=== PATIENT | male | born 1960 | race Caucasian/White ===

== ENCOUNTER → 2023-05-28 08:55 | Outpatient (REF) | payer OTHER, SELFPAY ==
[2023-05-28 10:49] LABS: % Basophils 0.8 % (0-2); % Eosinophils 7.2 % (0-6); % Immature Granulocytes 0.6 % (0-0.5); % Lymphocytes 30.5 % (20.5-51.1); % Monocytes 9.7 % (1.7-9.3); % Neutrophils 51.2 % (42.2-75.2); Absolute Eosinophils 0.4 10^3/uL (0-0.7); Absolute Lymphocytes 1.5 10^3/uL (1.2-3.4); Absolute Monocytes 0.5 10^3/uL (0.1-0.6); Absolute Neutrophils 2.5 10^3/uL (1.4-6.5); Hematocrit 41.9 % (39.0-52.0); Hemoglobin 14.6 g/dL (13.0-18.0); Mean Corp Hgb Conc. 34.8 g/dL (33.0-37.0); Mean Corpuscular Hgb 29.7 pg (27.0-31.0); Mean Corpuscular Volume 85.3 fL (80.0-94.0); Mean Platelet Volume 12.7 fL (7.4-10.4); Nucleated Red Blood Cells % 0 % (-); Platelet Count 152 10^3/uL (130-400); Red Blood Cell Count 4.91 10^6/uL (4.70-6.10); Red Cell Dist. Width 12.7 % (11.5-14.5); White Blood Cell Count 4.9 10^3/uL (4.8-10.8)
[2023-05-28 10:52] LABS: ALT (SGPT) 30 U/L (0-50); AST (SGOT) 34 U/L (17-59); Albumin 4.2 g/dl (3.5-5.0); Alkaline Phosphatase 74 U/L (38-126); Blood Urea Nitrogen 23 mg/dl (9-20); Calcium 9.3 mg/dl (8.4-10.2); Carbon Dioxide 22 mmol/L (22-30); Chloride 104 mmol/L (98-107); Direct Bilirubin 0.2 mg/dl (0.0-0.4); GGTP 47 U/L (15-73); Glucose 88 mg/dl (70-99); LDH 175 U/L (120-246); Magnesium 1.8 mg/dl (1.6-2.3); Potassium 4.5 mmol/L (3.5-5.1); Sodium 133 mmol/L (135-145); Total Bilirubin 1.8 mg/dl (0.2-1.3); Total Protein 6.9 g/dl (6.3-8.2); eGFR > 60.00
[2023-05-29 21:52] LABS: Tacrolimus (Prograft - FK506) 4.5 ng/mL
== END ==
LOC: REG 08:55
PROVIDERS: ATTENDING PHYSICIAN Internal Medicine Gastroenterology; FAMILY PHYSICIAN Family Medicine
DX: Z94.4 Liver transplant status (principal); Z92.25 Personal history of immunosuppression therapy; Z79.899 Other long term (current) drug therapy; Z00.00 Encounter for general adult medical examination without abnormal findings; Z51.81 Encounter for therapeutic drug level monitoring
CPT/HCPCS: 36415; 80053; 80197; 82248; 82977; 83615; 83735; 85025

== ENCOUNTER → 2023-11-13 09:16 | Outpatient (REF) | payer OTHER, SELFPAY ==
[2023-11-13 11:29] LABS: % Basophils 0.7 % (0-2); % Eosinophils 7.1 % (0-6); % Immature Granulocytes 0.8 % (0-0.5); % Lymphocytes 31.2 % (20.5-51.1); % Monocytes 8.6 % (1.7-9.3); % Neutrophils 51.6 % (42.2-75.2); Absolute Eosinophils 0.4 10^3/uL (0-0.7); Absolute Immature Granulocytes 0.1 10^3/uL (0-0.05); Absolute Lymphocytes 1.8 10^3/uL (1.2-3.4); Absolute Monocytes 0.5 10^3/uL (0.1-0.6); Hematocrit 41.2 % (39.0-52.0); Hemoglobin 14.7 g/dL (13.0-18.0); Mean Corp Hgb Conc. 35.7 g/dL (33.0-37.0); Mean Corpuscular Hgb 29.7 pg (27.0-31.0); Mean Corpuscular Volume 83.2 fL (80.0-94.0); Mean Platelet Volume 12.1 fL (7.4-10.4); Nucleated Red Blood Cells % 0 % (-); Platelet Count 160 10^3/uL (130-400); Red Blood Cell Count 4.95 10^6/uL (4.70-6.10); Red Cell Dist. Width 12.8 % (11.5-14.5); White Blood Cell Count 5.9 10^3/uL (4.8-10.8)
[2023-11-13 12:05] LABS: ALT (SGPT) 25 U/L (0-50); AST (SGOT) 28 U/L (17-59); Albumin 4.4 g/dl (3.5-5.0); Alkaline Phosphatase 77 U/L (38-126); Blood Urea Nitrogen 18 mg/dl (9-20); Calcium 9.4 mg/dl (8.4-10.2); Carbon Dioxide 23 mmol/L (22-30); Chloride 101 mmol/L (98-107); Direct Bilirubin 0.2 mg/dl (0.0-0.4); GGTP 44 U/L (15-73); Glucose 91 mg/dl (70-99); HDL Cholesterol 65 mg/dl; LDH 184 U/L (120-246); LDL Cholesterol, Calculated 131 mg/dl; Magnesium 1.6 mg/dl (1.6-2.3); Potassium 4.4 mmol/L (3.5-5.1); Sodium 137 mmol/L (135-145); Total Bilirubin 2.1 mg/dl (0.2-1.3); Total Cholesterol 226 mg/dl (50-199); Total Protein 6.8 g/dl (6.3-8.2); Triglyceride 151 mg/dl (10-149); Very Low Density Lipoprotein 30 mg/dl (0-30); eGFR > 60.00
[2023-11-13 18:27] LABS: PSA, Total - Screen 1.74 ng/ml (0.0-4.0); TSH 1.49 uIU/ml (0.47-4.68)
[2023-11-15 16:51] LABS: Tacrolimus (Prograft - FK506) 6.4 ng/mL
== END ==
LOC: REG 09:16
PROVIDERS: ATTENDING PHYSICIAN Internal Medicine Gastroenterology; FAMILY PHYSICIAN Family Medicine
DX: Z94.4 Liver transplant status (principal); Z00.00 Encounter for general adult medical examination without abnormal findings; Z51.81 Encounter for therapeutic drug level monitoring; Z92.25 Personal history of immunosuppression therapy; E03.9 Hypothyroidism, unspecified; R53.83 Other fatigue; E78.5 Hyperlipidemia, unspecified; R35.0 Frequency of micturition; I10 Essential (primary) hypertension; Z12.5 Encounter for screening for malignant neoplasm of prostate
CPT/HCPCS: 36415; 80053; 80061; 80197; 82248; 82977; 83615; 83735; 84443; 85025; G0103

== ENCOUNTER → 2024-06-27 09:49 | Outpatient (REF) | payer OTHER, SELFPAY ==
[2024-06-27 10:29] LABS: % Basophils 0.8 % (0-2); % Eosinophils 4.6 % (0-6); % Immature Granulocytes 0.7 % (0-0.5); % Lymphocytes 29.5 % (20.5-51.1); % Monocytes 8.5 % (1.7-9.3); % Neutrophils 55.9 % (42.2-75.2); Absolute Basophils 0.1 10^3/uL (0-0.2); Absolute Eosinophils 0.3 10^3/uL (0-0.7); Absolute Lymphocytes 1.7 10^3/uL (1.2-3.4); Absolute Monocytes 0.5 10^3/uL (0.1-0.6); Absolute Neutrophils 3.3 10^3/uL (1.4-6.5); Hematocrit 44.2 % (39.0-52.0); Hemoglobin 15.3 g/dL (13.0-18.0); Mean Corp Hgb Conc. 34.6 g/dL (33.0-37.0); Mean Corpuscular Volume 86.7 fL (80.0-94.0); Mean Platelet Volume 11.9 fL (7.4-10.4); Nucleated Red Blood Cells % 0 % (-); Platelet Count 157 10^3/uL (130-400); Red Cell Dist. Width 12.5 % (11.5-14.5); White Blood Cell Count 5.9 10^3/uL (4.8-10.8)
[2024-06-27 10:59] LABS: ALT (SGPT) 20 U/L (0-50); AST (SGOT) 23 U/L (17-59); Albumin 4.1 g/dl (3.5-5.0); Alkaline Phosphatase 64 U/L (38-126); Blood Urea Nitrogen 18 mg/dl (9-20); Calcium 9.3 mg/dl (8.4-10.2); Carbon Dioxide 25 mmol/L (22-30); Chloride 106 mmol/L (98-107); Direct Bilirubin 0.2 mg/dl (0.0-0.4); Glucose 92 mg/dl (70-99); LDH 189 U/L (120-246); Magnesium 1.8 mg/dl (1.6-2.3); Potassium 4.4 mmol/L (3.5-5.1); Sodium 137 mmol/L (135-145); Total Bilirubin 2.1 mg/dl (0.2-1.3); Total Protein 6.7 g/dl (6.3-8.2); eGFR > 60.00
[2024-06-27 12:10] LABS: GGTP 37 U/L (15-73)
[2024-06-29 00:36] LABS: Tacrolimus (Prograft - FK506) 6.3 ng/mL
== END ==
LOC: REG 09:49
PROVIDERS: ATTENDING PHYSICIAN Internal Medicine Gastroenterology; FAMILY PHYSICIAN Family Medicine
DX: Z94.4 Liver transplant status (principal); Z00.00 Encounter for general adult medical examination without abnormal findings; Z51.81 Encounter for therapeutic drug level monitoring; Z48.23 Encounter for aftercare following liver transplant; D84.9 Immunodeficiency, unspecified
CPT/HCPCS: 36415; 80053; 80197; 82248; 82977; 83615; 83735; 85025

== ENCOUNTER 2024-07-08 09:19 | Emergency (ER) | payer OTHER, SELFPAY ==
[2024-07-08 09:23] VITALS: BP 182/90
[2024-07-08 10:27] VITALS: BMI 30.3
[2024-07-08 10:31] VITALS: BP 153/90
--- NOTE | 2024-07-08 11:28 | ED.GENMED ---
History of Present Illness
General
Chief Complaint: Catheter/Tube Problem
Source: patient
Exam Limitations: none
Time Seen by Provider: 07/08/24 10:08
History of Present Illness
History of Present Illness:
Patient is a 63-year-old male with past medical history of cirrhosis liver transplant presents to the ER for evaluation. He has a right upper chest wall port for blood draws and complains of discomfort to the site. He reports he was here 2 weeks
ago and after they mumtaz blood he feels that they may have shifted /flipped the port ; it has not felt normal since. He denies however redness to the site denies any fever or chills.
He spoke to his transplant physician Dr. Maksim Morrell who sent him to the ER to have his port removed. He reports he was trying to get an order from his physician so he could come here to [facility] but he was not able to get an
order to have it removed.
Past History
Past History
ED Past Medical History: Other, Other and Other
Social History
Tobacco: Former smoker
Alcohol: Daily
Personal:
Living: with family
Employment: Employed
Family History
Family History: Other
Review of Systems
Review of Systems
All Other Systems: ROS reviewed and negative except as documented in HPI and ROS
Constitutional: Reports no symptoms; Denies fever or fatigue
Respiratory: Reports no symptoms
Cardiac: Reports no symptoms
ABD/GI: Reports no symptoms
: Reports no symptoms
Musculoskeletal: Reports no symptoms
Skin: Reports other (port to right chest wall 'feels flipped' )
Neurological: Reports no symptoms
Psychiatric: Reports no symptoms
Phy Exam
General Physical Exam
General Presentation: no apparent distress
General age: appears stated age
General Skin: warm and dry
General Habitus: normal
General Mental: alert
General Hydration: appears well hydrated
Cardiovascular Exam
Cardiovascular Exam: regular rate/rhythm, no murmur and normal peripheral pulses
Pulmonary Exam
Pulmonary Exam: lungs clear, no respiratory distress and other (Right chest wall with port palpated no inflammation swelling to the area or ecchymosis no abrasions)
Neurological Exam
Neurological Exam: alert and oriented x3
Musculoskeletal Exam
Musculoskeletal Exam: full ROM
Skin Exam
Skin Exam: normal color and warm/dry
Course
Orders/Labs/Results
Orders:
Orders
07/08/24 12:02
[facility] CONSULT Urgent
Consulting Provider: Brandin Domingo
Was physician already notified: Yes
Procedure being ordered, including laterality if applicable: port removal
Acknowledgement that appropriate orders are entered: Yes
Vital Signs
Initial and Last Documented VS:
Initial Vital Signs
Temp Pulse Resp BP Pulse Ox
98.6 F 88 18 182/90 97
07/08/24 09:23 07/08/24 09:23 07/08/24 09:23 07/08/24 09:23 07/08/24 09:23
Last Documented Vital Signs
Temp Pulse Resp BP Pulse Ox
98.6 F 64 18 150/84 100
07/08/24 09:23 07/08/24 13:31 07/08/24 13:31 07/08/24 13:31 07/08/24 13:31
MDM/Problems Addressed
Differential Diagnosis Includes:
port problem
MDM/Problems Addressed:
Patient is a 63-year-old male who has a port in for blood draws and 2 weeks ago after having it used to withdraw blood he feels is either flipped or twisted. He has no other complaints. He denies any fever chills redness. On exam there is no
evidence of infection. I spoke with interventional radiology they are aware of this patient as he has been calling interventional radiology every day to try to get this catheter removed. He needed a note from his physician. I did contact his
physician Dr. Gandhi/physician group who sent an order to have this port removed.
I spoke directly with interventional radiology. they will schedule patient on Thursday to have this done as they have multiple critical patients here in the ER. There is nothing urgent to do in the ER. I did review this with patient he is
agreeable this plan of care and happy with the outcome.
*Critical Care Note
Total Time (30-74mins, 75-104mins- exclusive of procedures): Not Applicable
ED Attending Note
-
Portions of this chart may have been created with voice recognition software.� Occasional wrong word or��sound alike� substitutions may have occurred due to the inherent limitations of voice recognition software.
Discharge Plan
Departure
Patient Disposition: Home (Routine Discharge)
Date of Disposition: 07/08/24
Time of Disposition: 13:20
Patient with high blood pressure during this ER visit?: Yes
Condition: Good
Covid-19: Not Applicable
Discharge Problem:
Problem with intravenous catheter
Prescriptions:
No Action
aspirin [Baby Aspirin] 81 mg Tablet,Chewable
81 mg PO DAILY
tacrolimus [Prograf] 1 mg Capsule
1 mg PO Q12H
magnesium oxide 400 mg magnesium Capsule
400 mg PO BID
sodium,potassium,mag sulfates [Suprep Bowel Prep Kit] 17.5-3.13-1.6 gram Recon Soln
1 PER PROTOCOL
Referrals:
Drew Escobar DO [Family Provider] -
Activity Restrictions/Additional Instructions:
As discussed please call interventional radiology when you get home today to schedule an appointment for Thursday.
As reviewed there is no evidence of infection on exam .
return if any worsening of symptoms
Interventions
Interventions:
*Risk Screen - Suicide Last Done: 07/08/24 09:23
*General Assessment Last Done: 07/08/24 09:23
*Neglect/Abuse Screening Last Done: 07/08/24 09:23
*ED- Fall Risk Assessment Last Done: 07/08/24 10:27
*ED COVID-19 Vaccine History Last Done: 07/08/24 10:27
*Nursing Disposition Last Done: 07/08/24 13:31
HJ-Luyokl-Wbtitkyhgg Assessment Last Done: 07/08/24 10:27
ED-Male Genitourinary Assessment Last Done: 07/08/24 10:27
Discharge Date and Time
Discharge Date/Time: 07/08/24 13:32
Print Language: LEBANESE
--- NOTE | 2024-07-08 13:29 | EDRN ---
Reviewed discharge instructions with patient. Verbalized understanding. Ambulated with steady gait to the lobby.
[2024-07-08 13:31] VITALS: BP 150/84
== END 2024-07-08 13:32 | disposition home or self-care (01) ==
LOC: EMR 09:19
PROVIDERS: CONSULT PHYSICIAN Radiology Vascular & Interventional Radiology; EMERGENCY PHYSICIAN Emergency Medicine; FAMILY PHYSICIAN Family Medicine
DX: T82.848A Pain due to vascular prosthetic devices, implants and grafts, initial encounter (principal); Y84.8 Other medical procedures as the cause of abnormal reaction of the patient, or of later complication, without mention of misadventure at the time of the procedure; Z87.891 Personal history of nicotine dependence; Z94.4 Liver transplant status
CPT/HCPCS: 99282

== ENCOUNTER → 2024-07-12 13:19 | Outpatient (REF) | payer OTHER, SELFPAY ==
[2024-07-12 13:47] VITALS: BP 150/96; BP_SYST 76
== END ==
LOC: RADI 13:19
PROVIDERS: ATTENDING PHYSICIAN Nurse Practitioner Family; FAMILY PHYSICIAN Family Medicine
DX: Z45.2 Encounter for adjustment and management of vascular access device (principal)
CPT/HCPCS: 36590; 77001

== ENCOUNTER → 2024-08-23 10:39 | Outpatient (REF) | payer OTHER, SELFPAY | LOC: RAD 10:39 | PROVIDERS: ATTENDING PHYSICIAN Physician Assistant; FAMILY PHYSICIAN Family Medicine | DX: S20.351A Superficial foreign body of right front wall of thorax, initial encounter (principal) | CPT/HCPCS: 71045 ==

== ENCOUNTER → 2024-09-22 06:58 | Outpatient (REF) | payer OTHER, SELFPAY ==
[2024-09-22] VITALS (7 sets, daily range): BP systolic 72–159; BP diastolic 65–96
== END ==
LOC: RADI 06:58
PROVIDERS: ATTENDING PHYSICIAN Radiology Vascular & Interventional Radiology; FAMILY PHYSICIAN Family Medicine
DX: T82.898A Other specified complication of vascular prosthetic devices, implants and grafts, initial encounter (principal); Y82.8 Other medical devices associated with adverse incidents
CPT/HCPCS: 36590; 77001

== ENCOUNTER → 2025-01-05 10:43 | Outpatient (REF) | payer OTHER, SELFPAY ==
[2025-01-05 12:01] LABS: Hematocrit 43.4 % (39.0-52.0); Hemoglobin 15.4 g/dL (13.0-18.0); Mean Corp Hgb Conc. 35.5 g/dL (33.0-37.0); Mean Corpuscular Volume 83.8 fL (80.0-94.0); Nucleated Red Blood Cells % 0 % (-); Platelet Count 160 10^3/uL (130-400); Red Cell Dist. Width 12.6 % (11.5-14.5)
[2025-01-05 12:43] LABS: ALT (SGPT) 23 U/L (0-50); AST (SGOT) 25 U/L (17-59); Albumin 4.4 g/dl (3.5-5.0); Alkaline Phosphatase 69 U/L (38-126); Blood Urea Nitrogen 15 mg/dl (9-20); Calcium 9.5 mg/dl (8.4-10.2); Carbon Dioxide 24 mmol/L (22-30); Chloride 102 mmol/L (98-107); Glucose 84 mg/dl (70-99); Magnesium 1.6 mg/dl (1.6-2.3); Potassium 4.1 mmol/L (3.5-5.1); Sodium 134 mmol/L (135-145); Total Protein 7.2 g/dl (6.3-8.2); eGFR > 60.00
[2025-01-05 14:36] LABS: GGTP 33 U/L (15-73); LDH 180 U/L (120-246)
[2025-01-07 11:14] LABS: Tacrolimus (Prograft - FK506) 5.8 ng/mL
== END ==
LOC: REG 10:43
PROVIDERS: ATTENDING PHYSICIAN Internal Medicine Gastroenterology; FAMILY PHYSICIAN Family Medicine
DX: Z94.4 Liver transplant status (principal); Z00.00 Encounter for general adult medical examination without abnormal findings; Z51.81 Encounter for therapeutic drug level monitoring; Z48.23 Encounter for aftercare following liver transplant; D84.9 Immunodeficiency, unspecified
CPT/HCPCS: 36415; 80053; 80197; 82248; 82977; 83615; 83735; 85025